=== PATIENT | male | born 1980 | race Caucasian/White ===

== ENCOUNTER 2016-06-14 16:52 | Emergency (ER) | payer SELFPAY ==
[2016-06-14 16:57] VITALS: TEMP 98
--- NOTE | 2016-06-14 17:16 | EDPHY ---
H & P Stated Complaint: states he is going through ETOH w/drawl x6 days HPI/ROS: HPI CHIEF COMPLAINT: "I am going to alcohol withdrawal" HISTORY OF PRESENT ILLNESS: This patient very pleasant 35-year-old male significant past medical history for alcohol dependency, presents emergency room with feeling as if he is going to alcohol draw anxiety. Patient states that usually drinks 2-3 bottles of wine and stopped drinking approximately 6 days ago, however he did have 1 bottle wine 24 hours ago. Since then nothing to drink he has had increasing shakiness and anxiety. Denies ever having history of seizure, currently denies hallucinations, chest pain or shortness of breath. He states that he did go to alcohol draw 1 other time when he had to see a physician was prescribed lorazepam and did very well with this. He did not have to be hospitalized. Upon arrival here in emergency room he does tell me that he appears anxious. It is noted he is not tachycardic is not overtly hypertensive he is not tremulous. Past Medical History: Alcohol withdrawal, alcohol dependency Past Surgical History: No recent surgery Social History: History of daily alcohol use denies other drugs or illicits substance, no history of pill dependency Family History: Noncontributory ROS REVIEW OF SYSTEMS: A comprehensive 10 point review of systems is otherwise negative aside from elements mentioned in the history of present illness. Exam Constitutional appears well nontoxic, anxious, triage nursing summary reviewed , vital signs reviewed, awake/alert. Eyes normal conjunctivae and sclera, EOMI, PERRLA. HENT normal inspection, atraumatic, moist mucus membranes, no epistaxis, neck supple/ no meningismus, no raccoon eyes. Respiratory clear to auscultation bilaterally, normal breath sounds, no respiratory distress, no wheezing. Cardiovascular rate normal, regular rhythm, no murmur, no edema, distal pulses normal. Gastrointestinal soft, non-tender, no rebound, no guarding, normal bowel sounds, no distension, no pulsatile mass. Genitourinary no CVA tenderness. Musculoskeletal no midline vertebral tenderness, full range of motion, no calf swelling, no tenderness of extremities, no meningismus, good pulses, neurovascularly intact. Skin pink, warm, & dry, no rash, skin atraumatic. Neurologic awake, alert and oriented x 3, AAOx3, moves all 4 extremities equally, motor intact, sensory intact, CN II-XII intact, normal cerebellar, normal vision, normal speech. Psychiatric normal mood/affect. Heme/Lymph/Immune no lymphadenopathy. Differential Diagnosis: Includes but is not limited to in a particular order acute anxiety, alcohol withdrawal Medical Decision Making: Plan for this patient refused any IV establishment here medications here in emergency room like prescription for Ativan. Explained that I will give him a very limited prescription. Understands if he has worsening anxiety tremors vomiting fast heart rate he has a seek medical attention go to the emergency room. Source: Patient - Personal History Current Tetanus Diphtheria and Acellular Pertussis (TDAP): Unsure - Medical/Surgical History Other PMH: ETOH-. Ortho - Social History Smoking Status: Never smoked Constitutional: Initial Vital Signs Temperature (C) 36.6 C 06/14/16 16:54 Heart Rate 85 06/14/16 16:54 Blood Pressure 156/100 H 06/14/16 16:54 O2 Sat (%) 98 06/14/16 16:54 O2 Delivery Mode Room Air Allergies/Adverse Reactions: No Known Allergies Allergy (Unverified 06/14/16 16:54) Home Medications: Medication Instructions Recorded LORazepam [Ativan] 1 mg PO BID #12 tablet 06/14/16 Departure - Departure Disposition: Home, Routine, Self-Care Clinical Impression: Anxiety Alcohol dependence Qualifiers: Substance use status: uncomplicated Qualified Code(s): F10.20 - Alcohol dependence, uncomplicated Condition: Good Instructions: Anxiety (ED) Additional Instructions: 1. Do not take more than Your are prescribed 2. Return emergency room if you have any worsening symptoms questions or concerns. 3. Go directly emergency room if he starts vomiting have increased heart rate worsening shakiness or anxiety. Referrals: NONE *PRIMARY CARE P,. [Primary Care Provider] - As per Instructions Prescriptions: LORazepam [Ativan] 1 mg PO BID #12 tablet
[2016-06-14 18:45] VITALS: BP 131/92; PULSE 90; RESP 18; O2SAT 97
== END 2016-06-14 17:35 | disposition home or self-care (01) ==
LOC: CED 17:00
DX: F41.9 Anxiety disorder, unspecified (principal); F10.20 Alcohol dependence, uncomplicated